=== PATIENT | female | born 1970 | race Caucasian/White ===

== ENCOUNTER 2022-10-21 21:04 | Inpatient (IN) | payer BC ==
--- NOTE | 2022-10-21 21:58 | CT ---
EXAMINATION TYPE: CT brain wo con CT DLP: 1135.4 mGycm, Automated exposure control for dose reduction was used. DATE OF EXAM: 10/21/2022 9:53 PM COMPARISON: None. CLINICAL INDICATION:Female, 52 years old with history of AMS, ams TECHNIQUE: Brain: Axial CT images of the brain were obtained with coronal and sagittal reformats created and rev iewed. Contrast used: None. Oral contrast used: None. FINDINGS: Brain: Extra-axial spaces: No abnormal extra-axial fluid collections. Ventricular system: Within normal limits Cerebral parenchyma: No acute intraparenchymal hemorrhage or mass effect. The rodriguez-white junction is well differentiated. Cerebellum: Unremarkable. Mass effect: No evidence of midline shift. Intracranial vasculature: unremarkable Soft tissues: Normal. Calvarium/osseous structures: No depressed skull fracture. Paranasal sinuses and mastoid air cells: Clear. Mastoid air cells are Clear Visualized orbits: Orbital contents are intact. IMPRESSION: No acute intracranial process.
--- NOTE | 2022-10-21 22:00 | XR ---
EXAMINATION TYPE: XR chest 2V DATE OF EXAM: 10/21/2022 9:46 PM COMPARISON: None TECHNIQUE: XR chest 2V . CLINICAL INDICATION:Female, 52 years old with history of AMS; FINDINGS: Lungs/Pleura: Low lung volumes are present. There is no evidence of pleural effusion, focal consolida tion, or pneumothorax. Pulmonary vascularity: Unremarkable. Heart/mediastinum: Cardiomediastinal silhouette is unremarkable. Musculoskeletal: No acute osseous pathology. IMPRESSION: No acute cardiopulmonary disease/process.
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
[2022-10-21 22:16] LABS: Anisocytosis Slight; Basophils # (A) 0.1 k/uL (0-0.2); Basophils % (A) 1 %; Eosinophils # (A) 0.2 k/uL (0-0.7); Eosinophils % (A) 1 %; HCT 35.3 % (34.0-46.0); HGB 11.7 gm/dL (11.4-16.0); Lymphocytes # (A) 1.5 k/uL (1.0-4.8); Lymphocytes % (A) 7 %; MCH 26.3 pg (25.0-35.0); MCHC 33.2 g/dL (31.0-37.0); MCV 79.2 fL (80.0-100.0); Mean Platelet Volume 9.7; Monocytes % (A) 4 %; Neutrophils # (A) 18.9 k/uL (1.3-7.7); Neutrophils % (A) 86 %; Platelet Count 159 k/uL (150-450); RBC 4.46 m/uL (3.80-5.40); WBC 21.9 k/uL (3.8-10.6)
[2022-10-21 22:29] LABS: INR 1.3 (<1.2); Partial Thromboplastin Time 25.4 sec (22.0-30.0); Prothrombin Time 13.4 sec (9.0-12.0)
[2022-10-21 22:32] LABS: ALT 59 U/L (4-34); AST 126 U/L (14-36); African American GFR (CKD) 67 (>60 ml/min/1.73 sqM); Albumin 4.2 g/dL (3.5-5.0); Alcohol <10 mg/dL; Alkaline Phosphatase 175 U/L (38-126); Anion Gap 13 mmol/L; Blood Urea Nitrogen 25 mg/dL (7-17); Calcium 8.8 mg/dL (8.4-10.2); Carbon Dioxide 27 mmol/L (22-30); Chloride 95 mmol/L (98-107); Glucose 106 mg/dL (74-99); Lipase 38 U/L (23-300); Magnesium 1.9 mg/dL (1.6-2.3); Non-African American GFR(CKD) 58 (>60 ml/min/1.73 sqM); Potassium 3.9 mmol/L (3.5-5.1); Sodium 135 mmol/L (137-145); Total Protein 7.4 g/dL (6.3-8.2)
[2022-10-21 23:25] LABS: Appearance,Urine Clear (Clear); Bacteria,Urine Rare /hpf; Bilirubin,Urine Negative (Negative); Blood,Urine Negative (Negative); Color,Urine Yellow; Glucose,Urine (UA) Negative (Negative); Hyaline Casts,Urine 83 /lpf (0-2); Ketones,Urine Negative (Negative); Leukocyte Esterase,Urine Trace (Negative); Mucus,Urine Occasional /hpf; Nitrite,Urine Negative (Negative); Protein,Urine Trace (Negative); RBC,Urine 3 /hpf (0-5); Specific Gravity,Urine 1.018 (1.001-1.035); Squamous Epithelial Cell,Urine 1 /hpf (0-4); Urobilinogen,Urine <2.0 mg/dL (<2.0); WBC,Urine 3 /hpf (0-5)
[2022-10-21 23:35] LABS: Amphetamine Screen,Urine Not Detected (NotDetected); Barbiturate Screen,Urine Not Detected (NotDetected); Benzodiazepines Screen,Urine Detected (NotDetected); Cocaine Screen,Urine Detected (NotDetected); Methadone Screen, Urine Not Detected (NotDetected); Opiate Screen,Urine Detected (NotDetected); Oxycodone Screen, Urine Not Detected (NotDetected); Phencyclidine Screen,Urine Not Detected (NotDetected); Tricyclic Antidepressant,Urine Not Detected (NotDetected); Urn Cannabinoid Scrn Detected (NotDetected)
[2022-10-22] MEDS ORDERED: LACTULOSE 20 GM/30 ML CUP PO ONE (00:04)
[2022-10-22] MEDS ORDERED: NALOXONE 0.4 MG/ML 1 ML VIAL IV PRN (00:05)
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
[2022-10-22] MEDS: SODIUM CHLORIDE 0.9% 1,000 ML IV SCH ×2 (02:39→15:11)
[2022-10-22] MEDS: LEVOTHYROXINE 75 MCG TAB PO SCH (06:41)
[2022-10-22] MEDS: LACTULOSE 20 GM/30 ML CUP PO SCH ×4 (08:11→21:33)
[2022-10-22] MEDS: HEPARIN SODIUM,PORCINE/PF 5,000 UNIT/0.5 ML SYRINGE SQ SCH ×3 (08:11→23:55)
[2022-10-22] MEDS: BUMETANIDE 1 MG TAB PO SCH (08:12)
[2022-10-22] MEDS: TOPIRAMATE 25 MG TAB PO SCH (08:12)
[2022-10-22] MEDS: SPIRONOLACTONE 25 MG TAB PO SCH (08:12)
[2022-10-22] MEDS: PROPRANOLOL 10 MG TAB PO SCH (08:12)
[2022-10-22 08:25] LABS: Anisocytosis Slight; Basophils # (A) 0.1 k/uL (0-0.2); Basophils % (A) 0 %; Eosinophils # (A) 0.2 k/uL (0-0.7); Eosinophils % (A) 1 %; HCT 32.8 % (34.0-46.0); HGB 10.8 gm/dL (11.4-16.0); Lymphocytes # (A) 2.1 k/uL (1.0-4.8); Lymphocytes % (A) 13 %; MCH 26.1 pg (25.0-35.0); MCHC 32.9 g/dL (31.0-37.0); MCV 79.6 fL (80.0-100.0); Mean Platelet Volume 11.3; Monocytes # (A) 0.9 k/uL (0-1.0); Monocytes % (A) 5 %; Neutrophils # (A) 12.7 k/uL (1.3-7.7); Neutrophils % (A) 79 %; Platelet Count 139 k/uL (150-450); RBC 4.12 m/uL (3.80-5.40); RDW 16.2 % (11.5-15.5)
[2022-10-22 08:42] LABS: ALT 50 U/L (4-34); AST 105 U/L (14-36); African American GFR (CKD) >90 (>60 ml/min/1.73 sqM); Albumin 3.7 g/dL (3.5-5.0); Albumin/Globulin Ratio 1.2; Alkaline Phosphatase 148 U/L (38-126); Anion Gap 10 mmol/L; Blood Urea Nitrogen 18 mg/dL (7-17); Calcium 8.6 mg/dL (8.4-10.2); Carbon Dioxide 29 mmol/L (22-30); Chloride 98 mmol/L (98-107); Globulin 3.1 g/dL; Glucose 94 mg/dL (74-99); Non-African American GFR(CKD) >90 (>60 ml/min/1.73 sqM); Potassium 3.4 mmol/L (3.5-5.1); Sodium 137 mmol/L (137-145); Total Bilirubin 2.1 mg/dL (0.2-1.3); Total Protein 6.8 g/dL (6.3-8.2)
[2022-10-22] MEDS: LORazepam 1 MG TAB PO PRN (12:01)
[2022-10-23] MEDS: SODIUM CHLORIDE 0.9% 1,000 ML IV SCH (05:22)
[2022-10-23] MEDS: LEVOTHYROXINE 75 MCG TAB PO SCH (06:23)
[2022-10-23 06:34] LABS: African American GFR (CKD) >90 (>60 ml/min/1.73 sqM); Anion Gap 8 mmol/L; Blood Urea Nitrogen 13 mg/dL (7-17); Calcium 8.3 mg/dL (8.4-10.2); Carbon Dioxide 29 mmol/L (22-30); Chloride 102 mmol/L (98-107); Glucose 94 mg/dL (74-99); Non-African American GFR(CKD) >90 (>60 ml/min/1.73 sqM); Potassium 3.4 mmol/L (3.5-5.1); Sodium 139 mmol/L (137-145)
[2022-10-23] MEDS: HEPARIN SODIUM,PORCINE/PF 5,000 UNIT/0.5 ML SYRINGE SQ SCH (08:54)
[2022-10-23] MEDS: LACTULOSE 20 GM/30 ML CUP PO SCH ×2 (08:54→12:30)
[2022-10-23] MEDS: SPIRONOLACTONE 25 MG TAB PO SCH (08:55)
[2022-10-23] MEDS: TOPIRAMATE 25 MG TAB PO SCH (08:55)
[2022-10-23] MEDS: PROPRANOLOL 10 MG TAB PO SCH (08:55)
[2022-10-23] MEDS: BUMETANIDE 1 MG TAB PO SCH (08:55)
[2022-10-23] MEDS: LORazepam 1 MG TAB PO PRN (09:11)
[2022-10-23 09:22] VITALS: BP 99/59; PULSE 62; RESP 19; TEMP 98.1
[2022-10-23] MEDS ORDERED: POTASSIUM CHLORIDE ER 20 MEQ TAB.ER PO STA (11:18)
--- NOTE | 2022-10-23 15:12 | P.DS ---
Providers Date of admission: 10/22/22 00:05 Expected date of discharge: 10/23/22 Attending physician: Chano Anderson MD Primary care physician: Stated None Hospital Course: The patient is a 52-year-old female with a PMH of alcoholic cirrhosis, hypothyroidism, and substance use who was brought into the emergency room for altered mentation. The patient reportedly was at a friend's house where she had an argument with a friend and the police was eventually called. The patient was noted to be confused and was brought to the emergency room for further evaluation. At time of interview, the patient was lethargic but was able to answer most questions appropriately. She noted that her was concerned about her and convinced her to go to the hospital. The patient vehemently denies substance use but does report a long-standing history of alcohol use with liver disease. States that she continues to drink occasional alcohol. Reports feeling tired of the time of interview but denied any additional complaints. Denied experiencing headaches, numbness, tingling. Denied abdominal pain, nausea, vomiting. Denied fever, chills, cough. Vital signs upon arrival at the emergency room her temperature 99.7F, pulse 76, respiratory rate 16, BP 150/86, and SpO2 96% on room air. Lab evaluation was remarkable for leukocytosis of 21.9, sodium 135, chloride 95, BUN 25, creatinine 1.11, total bilirubin 2.0, AST 126, ALT 59, alkaline phosphatase 175, ammonia 56, troponin less than 0.012, proBNP 140, urine toxicology positive for opiates, benzodiazepines, cocaine, and marijuana with serum alcohol less than 10. CT brain in the emergency room was unremarkable and EKG showing sinus rhythm at 71 bpm with T-wave inversion in leads V1 and V2. Chest x-ray was unremarkable. Patient started on lactulose 20 g by mouth 4 times a day admitted for further management of symptoms. She was restarted on propranolol, Aldactone, Bumex, Synthroid and Topamax. Her mentation considerably improved overnight. Repeat ammonia level was within no rmal limits at 17. Her altered mentation was thought to be related to polysubstance abuse including opiates, benzodiazepine, cocaine and marijuana. Patient seen and examined this morning. No acute events overnight. Nursing reports no issues overnight. Patient is no complaints. She is alert and oriented 3. She is able to ambulate within her room without any difficulties. Patient is requesting to be discharged home. Pertinent studies include brain CT, chest x-ray. We will increase Lactulose to 20g by mouth three times a day scheduled on discharge. General: non toxic, no distress, appears at stated age Derm: warm, dry Head: atraumatic, normocephalic, symmetric Eyes: EOMI, no lid lag, anicteric sclera Mouth: no lip lesion, mucus membranes moist Cardiovascular: S1S2 reg, no murmur Lungs: CTA bilateral, no rhonchi, no rales , no accessory muscle use Abdominal: soft, nontender to palpation, no guarding, no appreciable organomegaly Ext: no gross muscle atrophy, no edema, no contractures Neuro: no focal neuro deficits Psych: Alert, oriented, appropriate affect Patient will be discharged home with the following instructions: Diet: Regular Follow up with your PCP within 1-2 days of discharge. Take all medications as advised. Follow up with your Neurologist and Phlebotomy Program Coordinator within 1 week of discharge. She is advised to refrain from any illicit substance use. Discharge diagnoses: #Altered mental status, hepatic encephalopathy vs secondary to substance use #Kidney injury, acute versus chronic #Abnormal LFTs likely secondary to alcoholic cirrhosis #Polysubstance abuse Patient Condition at Discharge: Stable Plan - Discharge Summary Discharge Rx Participant: Yes New Discharge Prescriptions: New Lactulose [Cephulac] 20 gm PO TID #2700 ml Continue Pregabalin [Lyrica] 200 mg PO TID Baclofen [Lioresal] 10 mg PO TID Propranolol [Inderal] 10 mg PO DAILY Levothyroxine Sodium [Synthroid] 150 mcg PO DAILY Ergocalciferol (Vitamin D2) [Drisdol (50,000 Iu)] 1,250 mcg PO Q7D LORazepam [Ativan] 1 mg PO TID PRN PRN Reason: Anxiety Venlafaxine HCl [Effexor XR] 150 mg PO DAILY Topiramate 50 mg PO DAILY Spironolactone [Aldactone] 50 mg PO DAILY Bumetanide [BUMEX] 1 mg PO DAILY Discontinued Lactulose [Constulose] 20 gm PO BID PRN PRN Reason: Constipation Discharge Medication List Baclofen [Lioresal] 10 mg PO TID 10/21/22 [History] Bumetanide [BUMEX] 1 mg PO DAILY 10/21/22 [History] Ergocalciferol (Vitamin D2) [Drisdol (50,000 Iu)] 1,250 mcg PO Q7D 10/21/22 [History] LORazepam [Ativan] 1 mg PO TID PRN 10/21/22 [History] Levothyroxine Sodium [Synthroid] 150 mcg PO DAILY 10/21/22 [History] Pregabalin [Lyrica] 200 mg PO TID 10/21/22 [History] Propranolol [Inderal] 10 mg PO DAILY 10/21/22 [History] Spironolactone [Aldactone] 50 mg PO DAILY 10/21/22 [History] Topiramate 50 mg PO DAILY 10/21/22 [History] Venlafaxine HCl [Effexor XR] 150 mg PO DAILY 10/21/22 [History] Lactulose [Cephulac] 20 gm PO TID #2700 ml 10/23/22 [Rx] Follow up Appointment(s)/Referral(s): None,Stated [Primary Care Provider] - 1-2 days Patient Instructions/Handouts: Return to Work Instructions (GEN) Activity/Diet/Wound Care/Special Instructions: Diet: Regular Follow up with your PCP within 1-2 days of discharge. Take all medications as advised. Follow up with your Neurologist and Phlebotomy Program Coordinator within 1 week of discharge. Discharge/Stand Alone Forms: Outpatient Counseling, Inp Substance Abuse Facilities Discharge Disposition: HOME SELF-CARE
== END 2022-10-23 13:20 | disposition home or self-care (01) | DRG 442 ==
LOC: EC 21:04 → 4SSUR 10-22 00:05
PROVIDERS: ADMIT Internal Medicine; ATTEND Internal Medicine
DX: K76.82 Hepatic encephalopathy (principal); E72.20 Disorder of urea cycle metabolism, unspecified; N17.9 Acute kidney failure, unspecified; Z68.44 Body mass index [BMI] 60.0-69.9, adult; K70.30 Alcoholic cirrhosis of liver without ascites; E66.01 Morbid (severe) obesity due to excess calories; N18.9 Chronic kidney disease, unspecified; R79.89 Other specified abnormal findings of blood chemistry; F19.10 Other psychoactive substance abuse, uncomplicated; E03.9 Hypothyroidism, unspecified; F10.20 Alcohol dependence, uncomplicated; Z79.890 Hormone replacement therapy; Z79.899 Other long term (current) drug therapy; Z71.41 Alcohol abuse counseling and surveillance of alcoholic
CPT/HCPCS: 36415; 70450; 71046; 80048; 80053; 80306; 80320; 81001; 82140; 83605; 83690; 83735; 83880; 84484; 85025; 85610; 85730; 93005; 99285